=== PATIENT | male | born 1950 ===

== ENCOUNTER → 2024-01-03 12:59 | Outpatient (BNVA) | payer MEDICARE, MEDICAID, SELFPAY | PROVIDERS: PCP Family Medicine; Referring Provider Family Medicine; Visit Provider Physician Assistant Surgical | DX: J45.909 Unspecified asthma, uncomplicated (principal); R91.1 Solitary pulmonary nodule; J61 Pneumoconiosis due to asbestos and other mineral fibers | CPT/HCPCS: 99214 ==